=== PATIENT | female | born 1980 | race Caucasian/White ===

== ENCOUNTER 2018-09-21 16:56 | Emergency (ER) | payer OTHER ==
[~2018-09-21] VITALS: Ht 162.6 cm; Wt 59.1 kg
[2018-09-21] MEDS ORDERED: VENTAER INH (17:06)
[2018-09-21] MEDS ORDERED: GABA600T4 PO (17:06)
[2018-09-21] MEDS ORDERED: HYDR-3713 PO (17:06)
[2018-09-21] MEDS ORDERED: PROP40TA62 PO (17:06)
[2018-09-21] MEDS ORDERED: ACETAMINOPHEN TAB 650MG DOSE (2X325MG) PO ONE (17:45)
--- NOTE | 2018-09-21 17:54 | REP ---
REASON: Pain in the neck after trauma. COMPARISON: None. Vertebral body height and alignment is within normal limits. The disc spaces are symmetric and well maintained. The facet joints are well aligned bilaterally. There is no evidence of a fracture. There is no evidence of abnormal paraspinal soft-tissue swelling. IMPRESSION:CT findings are within normal limits. Electronically Signed by Stanley Gomez DO 09/21/2018 06:01 P
--- NOTE | 2018-09-21 17:55 | REP ---
REASON: Trauma. PRIORS: None. TECHNIQUE: 4.5 mm contiguous transaxial sections were obtained from the skull base to the cerebral convexities with thin cuts through the posterior fossa without the administration of intravenous contrast. FINDINGS: The ventricles and sulci are consistent with the patient's age. There are no extra-axial fluid collections. There is no mass effect. The deep cerebral white matter is consistent with the patient's age. The orbital and petrous structures, cerebellopontine angles, and posterior fossa are unremarkable. The sella turcica, cavernous, and paracavernous structures are essentially unremarkable. The visualized portions of the paranasal sinuses and mastoid air cells are clear. Images of the skull base show no gross abnormality. IMPRESSION: Essentially unremarkable CT examination of the brain. Electronically Signed by Stanley Gomez DO 09/21/2018 06:01 P
[2018-09-21 18:30] VITALS: BP 144/86
== END 2018-09-21 18:37 | disposition home or self-care (01) ==
LOC: M ED 16:56 → EDBD 16:56 → M ED 18:37
DX: S13.4XXA Sprain of ligaments of cervical spine, initial encounter (principal); S00.03XA Contusion of scalp, initial encounter; R51 Headache; W00.9XXA Unspecified fall due to ice and snow, initial encounter; Y92.099 Unspecified place in other non-institutional residence as the place of occurrence of the external cause; Y93.9 Activity, unspecified; Y99.9 Unspecified external cause status; M54.40 Lumbago with sciatica, unspecified side; Z72.0 Tobacco use; Z79.899 Other long term (current) drug therapy; Z88.8 Allergy status to other drugs, medicaments and biological substances

== ENCOUNTER 2018-10-06 12:36 | Emergency (ER) | payer OTHER ==
[~2018-10-06] VITALS: Ht 162.6 cm; Wt 59.1 kg
[~2018-10-06 12:36] MED LIST: GABA600T4 PO; HYDR-3713 PO; PROP40TA62 PO; VENTAER INH
[2018-10-06] MEDS ORDERED: ONDANSETRON 4MG/2ML VIAL (J2405) IV ONE ×2 (13:30→17:00)
[2018-10-06] MEDS ORDERED: MORPHINE 4 MG/ML 1ML VIAL/SYRINGE (J2270) IV ONE ×2 (13:30→17:00)
[2018-10-06 13:31] LABS: BASO % 0.2 % (0.0-1.0); EOS # 0.2 10^3/uL (0.0-0.50); EOS % 2.4 % (0.0-3.0); HEMATOCRIT 38.6 % (36.0-47.0); HEMOGLOBIN 13.3 g/dl (12.0-15.5); LYMPH # 1.9 10^3/uL (1.5-4.5); LYMPH % 30.7 % (24.0-44.0); MEAN CORPUSCULAR HGB CONC 34.5 g/dl (32.0-36.5); MEAN CORPUSCULAR VOLUME 92.8 fl (80.0-96.0); MONO # 0.6 10^3/uL (0.0-0.8); MONO % 9.4 % (0.0-5.0); NEUTROPHILS # 3.5 10^3/uL (1.8-7.7); PLATELET COUNT, AUTOMATED 296 10^3/uL (150-450); RED BLOOD COUNT 4.16 10^6/uL (4.00-5.40); WHITE BLOOD COUNT 6.2 10^3/uL (4.0-10.0)
[2018-10-06 14:51] LABS: ALBUMIN 3.8 GM/DL (3.2-5.2); ALT/SGPT 18 U/L (12-78); BILIRUBIN,DIRECT 0.1 MG/DL (0.0-0.2); BILIRUBIN,TOTAL 0.4 MG/DL (0.2-1.0); BLOOD UREA NITROGEN 10 MG/DL (7-18); CALCIUM LEVEL 8.6 MG/DL (8.5-10.1); CARBON DIOXIDE LEVEL 24 MEQ/L (21-32); CHLORIDE LEVEL 109 MEQ/L (98-107); CREATININE FOR GFR 0.84 MG/DL (0.55-1.30); GLOMERULAR FILTRATION RATE > 60.0 (>60); GLUCOSE, FASTING 89 MG/DL (70-100); LIPASE 68 U/L (73-393); POTASSIUM SERUM 4.3 MEQ/L (3.5-5.1); SODIUM LEVEL 138 MEQ/L (136-145); TOTAL PROTEIN 7.2 GM/DL (6.4-8.2)
[2018-10-06] MEDS ORDERED: KETOROLAC 30 MG/ML VIAL (J1885) IV ONE (15:00)
[2018-10-06] MEDS ORDERED: ISOVUE-370 76% 100ML VIAL (Q9967) As Ordered ONE (15:12)
--- NOTE | 2018-10-06 16:34 | REP ---
CT abdomen and pelvis with IV but without oral contrast: History: Left lower quadrant pain. Diarrhea. No comparison study. CT contrast dose: 100 mL of intravenous Isovue [address] findings: Preliminary digital educational technician radiograph shows an unremarkable bowel gas pattern. The lung bases are clear on axial CT images. There is no evidence of pleural effusion or upper abdominal ascites. The liver and spleen are normal in size and homogeneous in texture. There is mild diffuse fatty infiltration of the liver. Spleen is normal in size and homogeneous in texture. No adrenal lesion is seen. No pancreatic abnormality is observed. The gallbladder is homogeneous in density, normal in size. The kidneys enhance symmetrically. No hydronephrosis, mass or calculus is seen. Normal caliber aorta is seen. A retroaortic left renal vein is noted in addition to a normally positioned smaller left renal vein. No retroperitoneal mass or adenopathy is seen. Small and large bowel loops are unremarkable in the abdomen and pelvis. There is heterogeneous myometrial enhancement in the uterus. Question early fibroid change. The uterus is not enlarged. No adnexal abnormality is seen. No free fluid noted. A normal appendix is seen in the right lower quadrant. Impression: Heterogeneous enhancement in the uterine myometrium, question fibroid change. Mild diffuse fatty infiltration of the liver. Otherwise negative CT study abdomen and pelvis. Normal appendix seen. Electronically Signed by Sergio Murrell MD 10/06/2018 08:02 P
[2018-10-06] MEDS ORDERED: ONDA4TAB6 PO (17:57)
[2018-10-06] MEDS ORDERED: DICY10CA13 PO (17:57)
--- NOTE | 2018-10-06 18:24 | REP ---
PELVIC ENDOVAGINAL PROBE ULTRASOUND: 10/06/2018. Clinical history: Left-sided pelvic pain. Heterogeneous enhancement in the uterus on CT with contrast today. No gross adnexal mass. Findings: No prior study. Transabdominal and endovaginal probes were provided with this examination. The bladder measured 5.5 x 3.7 x 3.3 cm, only partially filled. Uterus is anteverted and measures 6 x 3.2 x 4.1 cm. In the submucosal region of the body and fundus of the uterus is an 8 x 7 x 7 mm submucosal fibroid. Uterus is heterogeneous in echotexture. Endometrium is difficult to identify. I favor the fibroid is submucosal compared to endometrium. There is no pelvic free fluid. The ovaries are well seen, the right 2.4 x 1.6 x 1.7 cm. The left 2 x 1.7 x 1.2 cm. Neither shows cyst or solid mass. Doppler tracing shows resistive index 0.56 on that left side and 0.56 on the right, both normal. No torsion. No fluid adjacent to the ovaries. There is trace fluid in the cul-de-sac. Impression: 1. Anteverted uterus not enlarged but there is an 8 x 7 x 7 mm presumed submucosal fibroid posteriorly in the fundus near the body of the uterus. Uterus is heterogeneous in its echotexture as it was on enhancement. Endometrial stripe difficult to evaluate. Appears to measure about 3.4 mm without fluid in the endometrial cavity or endocervical canal. 2. Both ovaries show normal Doppler tracing and no discrete mass. No torsion. Trace free fluid. Electronically Signed by Gen Montoya MD 10/07/2018 01:13 P
[2018-10-06 18:31] VITALS: BP 124/80
--- NOTE | 2018-10-08 07:51 | ED PDOC ---
Post-Departure Follow-Up [facility] faxed formal report of ct abd/p for fu Sudhir Massey MD Oct 08, 2018 07:51
== END 2018-10-06 18:33 | disposition home or self-care (01) ==
LOC: M ED 12:36
DX: R10.84 Generalized abdominal pain (principal); R11.2 Nausea with vomiting, unspecified; R19.7 Diarrhea, unspecified; I10 Essential (primary) hypertension; J45.909 Unspecified asthma, uncomplicated; E05.00 Thyrotoxicosis with diffuse goiter without thyrotoxic crisis or storm; Z87.442 Personal history of urinary calculi; Z79.899 Other long term (current) drug therapy; Z88.8 Allergy status to other drugs, medicaments and biological substances; F17.210 Nicotine dependence, cigarettes, uncomplicated
CPT/HCPCS: 74177; 76830; 76856; 80048; 80076; 81001; 83690; 85025; 87086; 93976; 96374; 96375; 96376; 99284; J1885; J2270; J2405; Q9967

== ENCOUNTER 2018-10-19 12:14 | Emergency (ER) | payer OTHER ==
[~2018-10-19] VITALS: Ht 162.6 cm; Wt 59.1 kg
[~2018-10-19 12:14] MED LIST changes: +DICY10CA13 PO; +ONDA4TAB6 PO
[2018-10-19 12:42] LABS: BASO % 0.5 % (0.0-1.0); EOS # 0.1 10^3/uL (0.0-0.50); EOS % 1.8 % (0.0-3.0); HEMATOCRIT 37.8 % (36.0-47.0); HEMOGLOBIN 13.3 g/dl (12.0-15.5); LYMPH # 2.2 10^3/uL (1.5-4.5); LYMPH % 35.1 % (24.0-44.0); MEAN CORPUSCULAR HEMOGLOBIN 32.2 pg (27.0-33.0); MEAN CORPUSCULAR HGB CONC 35.2 g/dl (32.0-36.5); MEAN CORPUSCULAR VOLUME 91.5 fl (80.0-96.0); MONO # 0.7 10^3/uL (0.0-0.8); MONO % 11.8 % (0.0-5.0); NEUTROPHILS # 3.1 10^3/uL (1.8-7.7); NEUTROPHILS % 50.6 % (36.0-66.0); PLATELET COUNT, AUTOMATED 286 10^3/uL (150-450); RED BLOOD COUNT 4.13 10^6/uL (4.00-5.40); WHITE BLOOD COUNT 6.2 10^3/uL (4.0-10.0)
[2018-10-19] MEDS ORDERED: HYDROMORPHONE HCL 0.5 MG/ 0.5 ML SYRINGE (J1170 PER 1) IV ONE (12:45)
[2018-10-19] MEDS ORDERED: GI COCKTAIL 50ML BTL(HYOSCYAMINE/MAALOX/LIDOCAINE VISCOUS)(1:3:1) PO ONE (12:45)
[2018-10-19 12:54] LABS: PROTHROMBIN TIME 13.3 SECONDS (12.1-14.4)
[2018-10-19 12:55] LABS: PARTIAL THROMBOPLASTIN TIME 33.1 SECONDS (25.4-37.6)
[2018-10-19 13:10] LABS: ALBUMIN 3.9 GM/DL (3.2-5.2); ALT/SGPT 16 U/L (12-78); BILIRUBIN,DIRECT 0.1 MG/DL (0.0-0.2); BILIRUBIN,TOTAL 0.5 MG/DL (0.2-1.0); BLOOD UREA NITROGEN 8 MG/DL (7-18); CALCIUM LEVEL 8.8 MG/DL (8.5-10.1); CARBON DIOXIDE LEVEL 24 MEQ/L (21-32); CHLORIDE LEVEL 107 MEQ/L (98-107); CK-MB VALUE MASS < 1.0 NG/ML (<3.6); CPK CREATINE PHOSPHOKINASE 81 U/L (26-192); CREATININE FOR GFR 0.88 MG/DL (0.55-1.30); GLOMERULAR FILTRATION RATE > 60.0 (>60); GLUCOSE, FASTING 106 MG/DL (70-100); HCG, SERUM QUANTITATIVE < 1.0 MIU/ML; LIPASE 103 U/L (73-393); MB/CK RELATIVE INDEX 1.23 (< OR =4); POTASSIUM SERUM 4.1 MEQ/L (3.5-5.1); SODIUM LEVEL 138 MEQ/L (136-145); TOTAL PROTEIN 7.7 GM/DL (6.4-8.2); TROPONIN I < 0.02 NG/ML (< 0.10)
[2018-10-19] MEDS: HYDROMORPHONE HCL 0.5 MG/ 0.5 ML SYRINGE (J1170 PER 1) IV PRN ×2 (13:27→14:54)
--- NOTE | 2018-10-19 13:49 | REP ---
Clinical: Acute chest pain . Comparison: None . Findings: The mediastinum and cardiac silhouette are stable and within normal limits for portable technique. The lung rome are clear without acute consolidation, effusion, or pneumothorax. Skeletal structures are intact. Impression: No acute cardiopulmonary process appreciated. Electronically Signed by Jc Uriarte MD 10/19/2018 01:40 P
[2018-10-19] MEDS ORDERED: ISOVUE-370 76% 100ML VIAL (Q9967) As Ordered ONE (15:09)
--- NOTE | 2018-10-19 15:50 | REP ---
CT pulmonary angiogram: With IV contrast. History: Chest pain. Left-sided. Comparison studies: No comparison study. Contrast dose: 75 ML of Isovue [address] technique: Helical scanning is acquired and overlapping 1.5 mm and contiguous 3 mm axial images are reformatted. In addition, maximum intensity projection and multiplanar re-formation images are generated in sagittal and coronal imaging projections. CT pulmonary angiographic findings: There is good opacification of the pulmonary arterial tree. Axial and maximal intensity projection and MPR images show no evidence of vessel cutoff or filling defect to suggest a pulmonary embolus. Thoracic aorta shows no evidence of aneurysm or dissection. There is no evidence of pleural or pericardial effusion. Normal adrenal glands are seen. Visualized upper abdominal structures are unremarkable. A small quantity of thymic tissue is seen in the anterior mediastinum. There are is asymmetric enlargement of the left inferior thyroid lobe question left thyroid nodule. Consider thyroid sonography. There is mild multifocal pleural thickening bilaterally consistent with early pleural plaquing. No pulmonary nodule is appreciated. No mass or infiltrate is seen. Incidental note is made of what appears to be extrinsic compression of the celiac axis just beyond its origin from the ordering aorta consistent with median arcuate ligament compression related to the diaphragmatic hiatus. This may be asymptomatic or associated with chronic abdominal pain and/or weight loss. Impression: No CT evidence of pulmonary embolus. No active cardiopulmonary disease. Incidental finding of compression of the celiac axis consistent with median arcuate ligament compression. This may be asymptomatic or associated with chronic abdominal pain and/or weight loss. Consider thyroid sonography. Asymmetric enlargement of the suspected in the lower pole on the left thyroid lobe. Unreviewed
[2018-10-19] MEDS ORDERED: hydrOXYzine 25 MG TAB PO STA (16:43)
[2018-10-19] MEDS ORDERED: HYDR-3363 PO (17:02)
[2018-10-19 17:42] VITALS: BP 124/80
--- NOTE | 2018-10-20 07:19 | ECGEPIP ---
Stationary ECG Study [facility] - ED Test Date: 2018-10-19 Pat Name: BARBY MONTESINOS Department: Room: - Gender: F Profile Saw Operator: JACKI : 1980 Requested By: ALB[place]IA Maxwell Order Number: [id number] Reading MD: Negrita Rios Measurements Intervals [place] Rate: 65 P: 74 MN: 129 QRS: 69 QRSD: 73 T: 34 QT: 386 QTc: 401 Interpretive Statements SINUS RHYTHM NO PRIOR FOR COMPARISON Electronically Signed On 10-20-2018 7:19:29 EST by Negrita Rios
== END 2018-10-19 17:56 | disposition home or self-care (01) ==
LOC: M ED 12:14
DX: F41.9 Anxiety disorder, unspecified (principal); F43.20 Adjustment disorder, unspecified; E07.9 Disorder of thyroid, unspecified; I77.4 Celiac artery compression syndrome; I10 Essential (primary) hypertension; Z79.899 Other long term (current) drug therapy; Z88.8 Allergy status to other drugs, medicaments and biological substances; F17.210 Nicotine dependence, cigarettes, uncomplicated
CPT/HCPCS: 36415; 71045; 71275; 80048; 80076; 82550; 82553; 83690; 84702; 85025; 85610; 85730; 93005; 93041; 94760; 96374; 96375; 96376; 99285; J1170; Q9967

== ENCOUNTER → 2018-10-31 | Outpatient (REF) | payer OTHER ==
[~2018-10-31] MED LIST changes: +HYDR-3363 PO
[2018-11-01 11:53] LABS: APPEARANCE, URINE CLEAR (CLEAR); BACTERIA, URINE AUTO NEGATIVE (NEGATIVE); BILIRUBIN, URINE AUTO NEGATIVE (NEGATIVE); BLOOD, URINE BLOOD NEGATIVE (NEGATIVE); COLOR, URINE YELLOW (YELLOW); GLUCOSE, URINE (UA) AUTO NEGATIVE (NEGATIVE); KETONE, URINE AUTO NEGATIVE (NEGATIVE); LEUKOCYTE ESTERASE, URINE AUTO NEGATIVE (NEGATIVE); MUCUS, URINE SMALL (NEGATIVE); NITRITE, URINE AUTO NEGATIVE (NEGATIVE); PROTEIN, URINE AUTO NEGATIVE (NEGATIVE); RBC, URINE AUTO 1 /HPF (0-3); SQUAMOUS EPITHELIAL CELL UR AU 2 /HPF (0-6); UROBILINOGEN, URINE AUTO 0.2 mg/dL (0.0-2.0); WBC, URINE AUTO 2 /HPF (0-3)
== END ==
LOC: M SFHCPLAZ 11:22
PROVIDERS: ATTEND Physician Assistant
DX: R35.0 Frequency of micturition (principal)

== ENCOUNTER → 2018-11-02 | Outpatient (CLI) | payer OTHER ==
[2018-11-02 09:03] LABS: HEMATOCRIT 42.7 % (36.0-47.0); HEMOGLOBIN 14.5 g/dl (12.0-15.5); MEAN CORPUSCULAR HEMOGLOBIN 31.8 pg (27.0-33.0); MEAN CORPUSCULAR VOLUME 93.6 fl (80.0-96.0); PLATELET COUNT, AUTOMATED 323 10^3/uL (150-450); RED BLOOD COUNT 4.56 10^6/uL (4.00-5.40); WHITE BLOOD COUNT 4.2 10^3/uL (4.0-10.0)
[2018-11-02 09:36] LABS: ALBUMIN 4.3 GM/DL (3.2-5.2); ALT/SGPT 18 U/L (12-78); BILIRUBIN,TOTAL 0.5 MG/DL (0.2-1.0); BLOOD UREA NITROGEN 10 MG/DL (7-18); CALCIUM LEVEL 9.6 MG/DL (8.5-10.1); CARBON DIOXIDE LEVEL 27 MEQ/L (21-32); CHLORIDE LEVEL 107 MEQ/L (98-107); CHOLESTEROL LEVEL 171 MG/DL (<200); CHOLESTEROL RISK RATIO 3.489 (<5); CREATININE FOR GFR 0.88 MG/DL (0.55-1.30); FREE T4 1.15 NG/DL (0.76-1.46); GLOMERULAR FILTRATION RATE > 60.0 (>60); GLUCOSE, FASTING 99 MG/DL (70-100); HDL CHOLESTEROL 49 MG/DL (>40); LDL CHOLESTEROL 103 MG/DL (<100); NON-HDL-C 122 MG/DL; POTASSIUM SERUM 4.2 MEQ/L (3.5-5.1); SODIUM LEVEL 141 MEQ/L (136-145); THYROID STIMULATING HORMONE 0.249 uIU/ML (0.358-3.740); TOTAL PROTEIN 7.8 GM/DL (6.4-8.2); TRIGLYCERIDES LEVEL 96 MG/DL (<150)
[2018-11-02 11:17] LABS: TOTAL 25(OH) VITAMIN D 25.8 NG/ML (30.0-100.0)
== END ==
LOC: M LAB 08:21
PROVIDERS: ATTEND Physician Assistant
DX: E05.00 Thyrotoxicosis with diffuse goiter without thyrotoxic crisis or storm (principal)

== ENCOUNTER → 2018-11-14 | Outpatient (REF) | payer OTHER ==
[~2018-11-14] MED LIST changes: +KETO10TAB PO; +OCUF0.25 OS
[2018-11-14 12:36] LABS: APPEARANCE, URINE CLEAR (CLEAR); BACTERIA, URINE AUTO 1+ (NEGATIVE); BILIRUBIN, URINE AUTO NEGATIVE (NEGATIVE); BLOOD, URINE BLOOD 3+ (NEGATIVE); COLOR, URINE STRAW (YELLOW); GLUCOSE, URINE (UA) AUTO NEGATIVE (NEGATIVE); KETONE, URINE AUTO NEGATIVE (NEGATIVE); LEUKOCYTE ESTERASE, URINE AUTO 3+ (NEGATIVE); NITRITE, URINE AUTO NEGATIVE (NEGATIVE); PROTEIN, URINE AUTO NEGATIVE (NEGATIVE); RBC, URINE AUTO 0 /HPF (0-3); SPECIFIC GRAVITY URINE AUTO 1.001 (1.002-1.035); SQUAMOUS EPITHELIAL CELL UR AU 2 /HPF (0-6); UROBILINOGEN, URINE AUTO 0.2 mg/dL (0.0-2.0); WBC, URINE AUTO 20 /HPF (0-3)
== END ==
LOC: M SFHCPLAZ 11:40
PROVIDERS: ATTEND Physician Assistant
DX: R52 Pain, unspecified (principal)

== ENCOUNTER → 2018-11-14 | Outpatient (CLI) | payer OTHER ==
--- NOTE | 2018-11-14 15:55 | REP ---
Clinical: Hematuria. Technique: Axial noncontrast images from the lung bases to the pubic symphysis with coronal and sagittal re-formations. Findings: Lung bases are clear. Liver, spleen, pancreas, gallbladder, bilateral adrenal glands and kidneys appear relatively normal for noncontrast evaluation. No perinephric stranding or hydroureteronephrosis. No intrarenal or obstructing ureteral calculi identified. Evaluation of the enteric system is without obstruction or acute inflammatory process. Sigmoid diverticula noted without acute diverticulitis. Pelvis demonstrates normal bladder and age-appropriate uterus/adnexa. No ascites. No free air. No obvious adenopathy. Abdominal aorta without aneurysm. Musculoskeletal structures are intact. Impression: No acute abdominopelvic pathology appreciated. Electronically Signed by Jc Uriarte MD 11/14/2018 03:47 P
== END ==
LOC: M RAD 15:26
PROVIDERS: ATTEND Physician Assistant
DX: R31.9 Hematuria, unspecified (principal)

== ENCOUNTER 2018-11-15 18:30 | Emergency (ER) | payer OTHER ==
[~2018-11-15] VITALS: Ht 162.6 cm; Wt 59.1 kg
[~2018-11-15 18:30] MED LIST changes: -KETO10TAB PO; -OCUF0.25 OS
[2018-11-15] MEDS ORDERED: FLUORESCEIN OPHTH 1 MG STRIP As Ordered ONE (18:45)
[2018-11-15] MEDS ORDERED: TETRACAINE 0.5% OPHTH SOLN 4ML OS ONE (19:00)
[2018-11-15] MEDS ORDERED: FLUORESCEIN OPHTH 1 MG STRIP OS ONE (19:00)
[2018-11-15] MEDS ORDERED: CIPROFLOXACIN 0.3% OPHTH SOLN 2.5ML OS ONE (19:30)
[2018-11-15] MEDS ORDERED: KETO10TAB PO (19:41)
[2018-11-15] MEDS ORDERED: OCUF0.25 OS (19:41)
[2018-11-15] MEDS ORDERED: NORCO 5/325MG TABLET (BULK FOR ED) PO ONE (20:00)
[2018-11-15 20:03] VITALS: BP 137/86
== END 2018-11-15 20:04 | disposition home or self-care (01) ==
LOC: M ED 18:30
DX: S05.02XA Injury of conjunctiva and corneal abrasion without foreign body, left eye, initial encounter (principal); X58.XXXA Exposure to other specified factors, initial encounter; Y92.89 Other specified places as the place of occurrence of the external cause; I10 Essential (primary) hypertension; J45.909 Unspecified asthma, uncomplicated; E05.00 Thyrotoxicosis with diffuse goiter without thyrotoxic crisis or storm; Z79.899 Other long term (current) drug therapy; Z88.8 Allergy status to other drugs, medicaments and biological substances

== ENCOUNTER → 2018-11-18 | Outpatient (CLI) | payer OTHER ==
[~2018-11-18] MED LIST changes: +KETO10TAB PO; +OCUF0.25 OS
--- NOTE | 2018-11-20 09:47 | REP ---
MRI lumbar spine without contrast: History: Lumbar radiculopathy and low back pain. Left-sided L5 changes. Comparison study: June 28, 2016. Technique: Sagittal and axial T1 and T2-weighted scans are acquired in the usual fashion with and without fat saturation. Sequences include spin echo, turbo spin-echo, and STIR imaging sequences. MRI findings: There is a 1.8 cm hemangioma again noted in the L4 vertebral body unchanged. Cortical and medullary bone signal intensity are normal. There is straightening. Alignment is otherwise normal. Conus medullaris is normal in position and appearance at the T12-L1. No extra vertebral abnormality is observed. Axial and sagittal images at L1-2 and L2-3 show no abnormality. At L3-4, there is disc space narrowing and decreased disc space signal intensity. There is a broad-based L3-4 disc bulge indenting the ventral margin of the thecal sac. There is no evidence of central canal stenosis or neural foraminal impingement however. At L4-5, there is degenerative disc narrowing and central broad-based disc bulging again noted unchanged. Minimal ligamentum flavum and facet hypertrophy is present at the L4-5. This is unchanged. At L5-S1, there is mild facet hypertrophy bilaterally. No change from comparison study. Impression: Degenerative disc disease with the diffuse disc bulging and mild thecal sac compression again noted at L3-4 L4-5 unchanged. L4 hemangioma is again noted unchanged. No neural foraminal impingement seen. Electronically Signed by Sergio Murrell MD 11/20/2018 12:45 P
== END ==
LOC: M RAD 12:56
DX: M51.16 Intervertebral disc disorders with radiculopathy, lumbar region (principal)

== ENCOUNTER → 2018-12-21 | Outpatient (CLI) | payer OTHER ==
--- NOTE | 2018-12-21 10:46 | REP ---
Mesenteric Doppler ultrasound: History: Right upper quadrant pain. Ultrasound examination requested with and without inspiration. Findings: Peak systolic flow velocity in the abdominal aorta above the level of the celiac axis is measured at 99.8 cm/sec. Peak systolic flow velocity in the superior mesenteric artery origin is measured at 185 cm/sec, EDV 49 cm/sec. Monophasic flow is seen in the SMA. Normal flow would be triphasic in a fasting patient in the SMA. The celiac axis demonstrates elevated peak systolic flow velocities which vary with respiration. At expiration, peak systolic flow velocity in the celiac axis is measured at 226 cm/sec which is elevated. Peak systolic flow velocity is elevated even further in the celiac axis with inspiration where peak systolic flow velocity is measured at 356 cm/sec, EDV 115 cm/sec. In addition, there is a observable deflection in the celiac axis, decreasing the deflection angle with inspiration and increasing compression of the celiac artery on sagittal real time imaging. Impression: There are morphologic and Doppler velocity criteria consistent with celiac artery compression/median arcuate ligament syndrome. Electronically Signed by Sergio Murrell MD 12/21/2018 10:37 A
== END ==
LOC: M RAD 07:47
PROVIDERS: ATTEND Surgery Vascular Surgery
DX: R10.11 Right upper quadrant pain (principal); I77.89 Other specified disorders of arteries and arterioles

== ENCOUNTER → 2019-01-15 | Outpatient (CLI) | payer OTHER ==
[2019-01-15 16:24] LABS: BASO % 0.5 % (0.0-1.0); EOS # 0.1 10^3/uL (0.0-0.50); EOS % 1.3 % (0.0-3.0); HEMATOCRIT 40.2 % (36.0-47.0); HEMOGLOBIN 13.5 g/dl (12.0-15.5); LYMPH # 2.4 10^3/uL (1.5-4.5); MEAN CORPUSCULAR HGB CONC 33.6 g/dl (32.0-36.5); MEAN CORPUSCULAR VOLUME 92.2 fl (80.0-96.0); MONO # 0.5 10^3/uL (0.0-0.8); MONO % 8.6 % (0.0-5.0); NEUTROPHILS # 3.2 10^3/uL (1.8-7.7); NEUTROPHILS % 51.4 % (36.0-66.0); PLATELET COUNT, AUTOMATED 282 10^3/uL (150-450); RED BLOOD COUNT 4.36 10^6/uL (4.00-5.40); WHITE BLOOD COUNT 6.3 10^3/uL (4.0-10.0)
[2019-01-15 16:48] LABS: BLOOD UREA NITROGEN 13 MG/DL (7-18); CALCIUM LEVEL 9.2 MG/DL (8.5-10.1); CARBON DIOXIDE LEVEL 30 MEQ/L (21-32); CHLORIDE LEVEL 99 MEQ/L (98-107); GLOMERULAR FILTRATION RATE > 60.0 (>60); GLUCOSE, FASTING 92 MG/DL (70-100); POTASSIUM SERUM 3.9 MEQ/L (3.5-5.1); SODIUM LEVEL 136 MEQ/L (136-145)
== END ==
LOC: M LAB 15:50
PROVIDERS: ATTEND Surgery Vascular Surgery
DX: I77.4 Celiac artery compression syndrome (principal)

== ENCOUNTER → 2019-02-08 | Outpatient (CLI) | payer OTHER ==
[~2019-02-08] MED LIST changes: +BUPIVACAINE HCL 0.5% 10 ML VIAL As Ordered ONE; +HEPARIN 1,000 UNITS/ML 10ML VIAL (FOR RADIOLOGY& DIALYSIS ONLY) As Ordered ONE; +ISOVUE-300 61% 100ML VIAL (Q9967) As Ordered ONE; +LIDOCAINE 2% MDV 20 ML VIAL As Ordered ONE; +MIDAZOLAM INJ 2 MG/2 ML VIAL (J2250) As Ordered ONE; +PROTAMINE SULF INJ 50 MG/5 ML VIAL (J2720) As Ordered ONE; +diphenhydrAMINE INJ 50MG/ML VIAL (J1200) As Ordered ONE; +fentaNYL 100 MCG/2 ML INJECTION (J3010) As Ordered ONE
--- NOTE | 2019-02-24 12:30 | REPIR ---
DATE OF PROCEDURE: 02/08/2019 ATTENDING SURGEON: Luis Ash MD ASSISTANTS: Nigel Foster and Queta Tatum PREOPERATIVE DIAGNOSES: Median arcuate ligament syndrome, abdominal pain. POSTOPERATIVE DIAGNOSES: Median arcuate ligament syndrome, abdominal pain. PROCEDURE: Aortogram with and without inspiration, Mynx closure of the right common femoral arteriotomy. INDICATION: The patient is a 38-year-old female with abdominal pain who was found to have compression of the celiac artery noted on a CT scan. The patient underwent ultrasound, which also confirmed this, and will undergo angiography to confirm celiac artery compression from the median arcuate ligament. ANESTHESIA: Local with sedation with 1 mg of Versed, 100 mcg of fentanyl, and 10 mL of local. FLUORO TIME: 0.6 minutes. CONTRAST: 15 mL. SEDATION TIME: 09:48 a.m. to 10:18 a.m. for a total of 30 minutes. COMPLICATIONS: None. DRAINS: None. SPECIMENS: None. IMPLANTS: Right common femoral arteriotomy closure with a Mynx closure device. DESCRIPTION OF PROCEDURE: The patient was taken to the angiography suite, placed supine. The right common femoral artery was cannulated. A catheter was placed in the aorta, and expiration and inspiration views of the celiac artery were performed showing median arcuate compression of the celiac artery. The catheters and wires were removed. A Mynx closure device was used to close the arteriotomy in the right common femoral artery with an additional 10 minutes of adjunctive pressure applied for hemostasis. Dressings were then applied. The patient tolerated the procedure well. All instrument, sponge, and needle counts were correct at the end of the case. There were no complications. Dr. Ash was present for and directed the entire case. The patient was transferred to the holding area and subsequent discharged in stable condition.
== END | disposition home or self-care (01) ==
LOC: M IRPRO 08:58
PROVIDERS: ATTEND Surgery Vascular Surgery
DX: I77.4 Celiac artery compression syndrome (principal)
CPT/HCPCS: 36200; 75625; C1769; C1887; C1894; G0269; J1200; J2250; J3010; Q9967

== ENCOUNTER → 2019-03-08 | Outpatient (REF) | payer OTHER ==
[~2019-03-08] MED LIST changes: -BUPIVACAINE HCL 0.5% 10 ML VIAL As Ordered ONE; -HEPARIN 1,000 UNITS/ML 10ML VIAL (FOR RADIOLOGY& DIALYSIS ONLY) As Ordered ONE; -ISOVUE-300 61% 100ML VIAL (Q9967) As Ordered ONE; -LIDOCAINE 2% MDV 20 ML VIAL As Ordered ONE; -MIDAZOLAM INJ 2 MG/2 ML VIAL (J2250) As Ordered ONE; -PROTAMINE SULF INJ 50 MG/5 ML VIAL (J2720) As Ordered ONE; -diphenhydrAMINE INJ 50MG/ML VIAL (J1200) As Ordered ONE; -fentaNYL 100 MCG/2 ML INJECTION (J3010) As Ordered ONE
[2019-03-08 13:17] LABS: BASO % 0.4 % (0.0-1.0); EOS # 0.2 10^3/uL (0.0-0.50); EOS % 2.7 % (0.0-3.0); HEMOGLOBIN 13.5 g/dl (12.0-15.5); LYMPH # 1.9 10^3/uL (1.5-4.5); LYMPH % 26.4 % (24.0-44.0); MEAN CORPUSCULAR HGB CONC 32.9 g/dl (32.0-36.5); MONO # 0.7 10^3/uL (0.0-0.8); NEUTROPHILS # 4.2 10^3/uL (1.8-7.7); NEUTROPHILS % 60.2 % (36.0-66.0); PLATELET COUNT, AUTOMATED 293 10^3/uL (150-450); RED BLOOD COUNT 4.36 10^6/uL (4.00-5.40)
[2019-03-08 13:22] LABS: FREE T3 3.4 PG/ML (2.2-4.0)
[2019-03-08 13:31] LABS: ALBUMIN 3.9 GM/DL (3.2-5.2); ALT/SGPT 21 U/L (12-78); BILIRUBIN,TOTAL 0.3 MG/DL (0.2-1.0); BLOOD UREA NITROGEN 7 MG/DL (7-18); CALCIUM LEVEL 9.5 MG/DL (8.5-10.1); CARBON DIOXIDE LEVEL 31 MEQ/L (21-32); CHLORIDE LEVEL 105 MEQ/L (98-107); FREE T4 0.93 NG/DL (0.76-1.46); GLOMERULAR FILTRATION RATE > 60.0 (>60); GLUCOSE, FASTING 103 MG/DL (70-100); POTASSIUM SERUM 4.3 MEQ/L (3.5-5.1); SODIUM LEVEL 139 MEQ/L (136-145); TOTAL 25(OH) VITAMIN D 16.6 NG/ML (30.0-100.0); TOTAL PROTEIN 7.7 GM/DL (6.4-8.2)
[2019-03-09 09:40] LABS: THYROID PEROXIDASE ANTIBODY > 1300.0 U/ML (<60.0)
== END ==
LOC: M SFHCPLAZ 11:12
PROVIDERS: ATTEND Nurse Practitioner Family
DX: K04.7 Periapical abscess without sinus (principal); E55.9 Vitamin D deficiency, unspecified; E05.00 Thyrotoxicosis with diffuse goiter without thyrotoxic crisis or storm

== ENCOUNTER 2019-04-03 09:25 | Inpatient (IN) | payer OTHER ==
[~2019-04-03] VITALS: Ht 162.6 cm; Wt 55.7 kg
[2019-04-03 10:22] LABS: HEMATOCRIT 41.7 % (36.0-47.0); HEMOGLOBIN 13.8 g/dl (12.0-15.5); MEAN CORPUSCULAR HEMOGLOBIN 32.2 pg (27.0-33.0); MEAN CORPUSCULAR HGB CONC 33.1 g/dl (32.0-36.5); MEAN CORPUSCULAR VOLUME 97.2 fl (80.0-96.0); PLATELET COUNT, AUTOMATED 261 10^3/uL (150-450); RED BLOOD COUNT 4.29 10^6/uL (4.00-5.40); WHITE BLOOD COUNT 4.4 10^3/uL (4.0-10.0)
[2019-04-03] MEDS ORDERED: DICY10CA13 PO (10:26)
[2019-04-03 10:53] LABS: AMPHETAMINES LEVEL URINE NEGATIVE (NEGATIVE); BARBITURATES URINE NEGATIVE (NEGATIVE); BENZODIAZEPINES URINE NEGATIVE (NEGATIVE); CANNABINOIDS URINE POSITIVE (NEGATIVE); COCAINE METABOLITE URINE NEGATIVE (NEGATIVE); HCG, SERUM QUALITATIVE NEGATIVE (NEGATIVE); METHADONE URINE NEGATIVE (NEGATIVE); OPIATES URINE POSITIVE (NEGATIVE); PHENCYCLIDINE URINE NEGATIVE (NEGATIVE)
[2019-04-03 11:16] LABS: ACETAMINOPHEN LEVEL < 2.0 UG/ML (10.0-30.0); ALT/SGPT 13 U/L (12-78); BILIRUBIN,DIRECT < 0.1 MG/DL (0.0-0.2); BILIRUBIN,TOTAL 0.2 MG/DL (0.2-1.0); BLOOD UREA NITROGEN 9 MG/DL (7-18); CALCIUM LEVEL 8.8 MG/DL (8.5-10.1); CARBON DIOXIDE LEVEL 28 MEQ/L (21-32); CHLORIDE LEVEL 109 MEQ/L (98-107); CREATININE FOR GFR 0.98 MG/DL (0.55-1.30); ETHYL ALCOHOL (ETHANOL) 0.005 % (0.000-0.010); GLOMERULAR FILTRATION RATE > 60.0 (>60); GLUCOSE, FASTING 85 MG/DL (70-100); POTASSIUM SERUM 4.2 MEQ/L (3.5-5.1); SALICYLATE LEVEL 4.2 MG/DL (5.0-30.0); SODIUM LEVEL 141 MEQ/L (136-145); THYROID STIMULATING HORMONE 0.944 uIU/ML (0.358-3.740); TOTAL PROTEIN 7.9 GM/DL (6.4-8.2)
[2019-04-03] MEDS ORDERED: ONDA8TAB8 PO (11:52)
[2019-04-03] MEDS ORDERED: HYDR-643 PO (11:52)
[2019-04-03] MEDS ORDERED: MOM 30ML SUSPENSION UDC PO PRN (13:30)
[2019-04-03] MEDS ORDERED: MAALOX 30 ML SUSP *UDC PO PRN (13:30)
[2019-04-03 14:55] VITALS: BP 166/71
[2019-04-03] MEDS ORDERED: ALBUTEROL 90 MCG/ACT 8GM HFA INHALER INH PRN (15:30)
[2019-04-03] MEDS: GABAPENTIN 300 MG CAP PO SCH ×2 (16:14→20:17)
[2019-04-03] MEDS: PROPRANOLOL 20 MG TAB PO SCH ×2 (16:18→20:18)
[2019-04-03] MEDS: ONDANSETRON 4 MG TAB (S0181) PO PRN (17:44)
[2019-04-03 18:35] VITALS: BP 108/61
[2019-04-03] MEDS: CYCLOBENZAPRINE 5MG TABLET PO SCH (22:00)
[2019-04-03] MEDS: traZODone 50 MG TAB PO PRN (22:04)
--- NOTE | 2019-04-03 22:05 | HPEPDOC ---
General Date of Admission Apr 03, 2019 at 13:17 Date of Service: Apr 03, 2019 Attending Physician: ELKE CORDOBA MD Chief Complaint The patient is a 38-year-old female admitted with a reason for visit of Unspecified Depressive Disorder. History of Present Illness Patient is a 38-year-old female, past medical history significant for depression, anxiety, Graves disease, polysubstance abuse. Patient was admitted on account of suicidal ideation to inpatient psychiatric unit for further evaluation and management. On assessment, she denies chest pain, shortness of breath, she is very tearful, complains of severe low back pain. She denies chills, fever, abdominal pain, nausea, vomiting. Home Medications Scheduled Gabapentin (Gabapentin) 600 Mg Tab, 600 MG PO TID, (Reported) Hydroxyzine HCl (Hydroxyzine HCl) 10 Mg Tablet, 10 MG PO QHS, (Reported) Propranolol HCl (Propranolol HCl) 40 Mg Tab, 40 MG PO TID, (Reported) Scheduled PRN Albuterol Sulfate (Ventolin Hfa) 108 Mcg/Act Aer, 2 PUFF INH Q4H PRN for SOB/WHEEZING, (Reported) Ondansetron (Ondansetron Odt) 8 Mg Tab.rapdis, 8 MG PO Q8H PRN for NAUSEA, (Reported) Allergies Coded Allergies: adhesive tape (Verified Allergy, Unknown, HIVES, 04/03/19) fluoxetine (Verified Adverse Reaction, Severe, homicidal thoughts, 04/03/19) paroxetine (Verified Adverse Reaction, Severe, homicidal thoughts, 04/03/19) sertraline (Verified Adverse Reaction, Severe, homicidal thoughts, ) prednisone (Verified Adverse Reaction, Unknown, AGITATION, 04/03/19) Past Medical History Medical History Depression Polysubstance abuse Nicotine dependence Graves' disease Surgical History Left breast mass removal Bunion removal Tonsillectomy Social History Smokes one pack per day, denies alcohol use, admits to polysubstance abuse with THC, opiates, pearl, cocaine A-FIB/CHADSVASC A-FIB History Current/History of A-Fib/PAF?: No Current PO Anticoag Therapy: No Review of Systems Other systems A 10 point pertinent review of systems was completed, negative except as stated in the history of presenting illness. Physical Examination Other physical findings GENERAL: distressed SKIN : Warm, dry intact HEENT: Atraumatic, normocephalic, PERRL, moist mucous membrane CARDIOVASCULAR: Regular rate and rhythm, S1S2, no JVD, no edema, distal pulses + and palpable RESP: CTAB, no accessory muscle use noted ABDOMEN: BS+ non distended non tender MS: no joint deformities, pain with palpation of legs NEURO: Alert and oriented x 3, CN2-12 grossly intact PSYCH: tearful Vital Signs Vital Signs Date Time Temp Pulse Resp B/P (MAP) Pulse Ox O2 Delivery O2 Flow Rate FiO2 04/03/19 20:18 77 118/81 04/03/19 18:35 99.1 16 04/03/19 14:55 97 04/03/19 13:47 Room Air Laboratory Data Labs 24H Laboratory Tests 2 04/03/19 10:03: Nucleated Red Blood Cells % (auto) 0.0, Anion Gap 4L, Glomerular Filtration Rate > 60.0, Calcium Level 8.8, Aspartate Amino Transf (AST/SGOT) 10, Alanine Aminotransferase (ALT/SGPT) 13, Alkaline Phosphatase 100, Total Bilirubin 0.2, Direct Bilirubin < 0.1, Total Protein 7.9, Albumin 4.0, Albumin/Globulin Ratio 1.03, Thyroid Stimulating Hormone (TSH) 0.944, Human Chorionic Gonadotropin, Qu al NEGATIVE, Salicylates Level 4.2L, Urine Amphetamines Screen NEGATIVE, Urine Benzodiazepines Screen NEGATIVE, Urine Opiates Screen POSITIVEH, Urine Methadone Screen NEGATIVE, Acetaminophen Level < 2.0L, Urine Barbiturates Screen NEGATIVE, Urine Phencyclidine Screen NEGATIVE, Urine Cocaine Metabolite Screen NEGATIVE, Urine Cannabinoids Screen POSITIVEH, Ethyl Alcohol Level 0.005 CBC/BMP Laboratory Tests 04/03/19 10:03 Red Blood Count 4.29, Mean Corpuscular Volume 97.2 H, Mean Corpuscular Hemoglobin 32.2, Mean Corpuscular Hemoglobin Concent 33.1, Red Cell Distribution Width 13.1 Assessment/Plan Low back pain -Lumbar spine x-ray -Ibuprofen as needed with food and muscle relaxer Major depression with Suicidal ideation -Management by primary team Nicotine dependence -Management by primary team Polysubstance abuse -Management by primary team Plan / VTE VTE Prophylaxis Ordered?: No VTE Exclusion Mechanical Proph: Low Risk for VTE RINA CROSSP Apr 03, 2019 22:05
[2019-04-03] MEDS ORDERED: IBUPROFEN 600 MG TAB PO PRN (22:15)
[2019-04-04] MEDS: CYCLOBENZAPRINE 5MG TABLET PO SCH ×3 (06:17→21:22)
[2019-04-04 06:28] VITALS: BP 115/59
--- NOTE | 2019-04-04 06:34 | REP ---
Lumbar spine five views: Comparison is the lumbar spine MRI dated 11/18/2018. Mineralization is normal. Vertebral body heights, interspacing alignment are unremarkable. The There is no spondylolysis or spondylolisthesis. The pedicles and facets are unremarkable. The sacroiliac articulations are unremarkable. The L-4 hemangioma identified by MRI is not visible on these plain films. Impression: Essentially negative plain film study of the lumbar spine. Electronically Signed by Guanaco Kong MD 04/04/2019 06:26 A
[2019-04-04] MEDS: NICOTINE 21MG/24HR 1 EA TRANSDERMAL TD PRN (08:26)
[2019-04-04] MEDS: GABAPENTIN 300 MG CAP PO SCH ×3 (08:27→21:22)
[2019-04-04] MEDS: PROPRANOLOL 20 MG TAB PO SCH ×3 (08:28→21:22)
[2019-04-04] MEDS: ONDANSETRON 4 MG TAB (S0181) PO PRN ×2 (08:39→16:52)
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
[2019-04-04] MEDS: ANALGESIC BALM CRM 120 GM TOP PRN ×2 (13:16→19:34)
[2019-04-04] MEDS: VENLAFAXINE **XR** 37.5 MG CAPSULE PO SCH (17:21)
[2019-04-04 18:32] VITALS: BP 127/80
[2019-04-04] MEDS: traZODone 50 MG TAB PO PRN (21:22)
[2019-04-05] MEDS: CYCLOBENZAPRINE 5MG TABLET PO SCH ×3 (05:59→21:39)
[2019-04-05 06:30] VITALS: BP 99/59
[2019-04-05] MEDS: NICOTINE 21MG/24HR 1 EA TRANSDERMAL TD PRN (08:08)
[2019-04-05] MEDS: GABAPENTIN 300 MG CAP PO SCH ×3 (08:08→21:39)
[2019-04-05] MEDS: VENLAFAXINE **XR** 37.5 MG CAPSULE PO SCH (08:10)
[2019-04-05] MEDS: PROPRANOLOL 20 MG TAB PO SCH ×3 (08:10→22:24)
[2019-04-05] MEDS: ONDANSETRON 4 MG TAB (S0181) PO PRN (12:25)
[2019-04-05] MEDS: ACETAMINOPHEN TAB 650MG DOSE (2X325MG) PO PRN (15:17)
[2019-04-05 18:00] VITALS: BP 110/73
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
[2019-04-05] MEDS: traZODone 50 MG TAB PO PRN (20:39)
[2019-04-06] MEDS: CYCLOBENZAPRINE 5MG TABLET PO SCH (06:24)
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
[2019-04-06 06:46] VITALS: BP 99/51
[2019-04-06] MEDS: VENLAFAXINE **XR** 37.5 MG CAPSULE PO SCH (08:26)
[2019-04-06 08:27] VITALS: BP 101/66
[2019-04-06] MEDS: PROPRANOLOL 20 MG TAB PO SCH (08:27)
[2019-04-06] MEDS: GABAPENTIN 300 MG CAP PO SCH (08:28)
[2019-04-06] MEDS ORDERED: VENL37.598 PO (08:43)
[2019-04-06] MEDS: ACETAMINOPHEN TAB 650MG DOSE (2X325MG) PO PRN (09:35)
== END 2019-04-06 10:10 | disposition home or self-care (01) | DRG 754 ==
LOC: M ED 09:25 → M ED INP 13:17 → M PSY 14:17
PROVIDERS: ADMIT Psychiatry & Neurology Addiction Medicine; ATTEND Psychiatry & Neurology Addiction Medicine
DX: F32.9 Major depressive disorder, single episode, unspecified (principal); F17.210 Nicotine dependence, cigarettes, uncomplicated; M54.5 Low back pain; Z81.1 Family history of alcohol abuse and dependence; Z81.3 Family history of other psychoactive substance abuse and dependence; Z79.899 Other long term (current) drug therapy; Z88.8 Allergy status to other drugs, medicaments and biological substances

== ENCOUNTER → 2019-05-10 | Outpatient (CLI) | payer OTHER ==
[~2019-05-10] MED LIST changes: +HYDR-643 PO; +ONDA8TAB8 PO; +VENL37.598 PO
== END ==
LOC: M OUTALCOH 07:49
PROVIDERS: ATTEND Psychiatry & Neurology Psychiatry
DX: F11.20 Opioid dependence, uncomplicated (principal)

== ENCOUNTER 2019-05-18 09:24 | Outpatient (RCR) | payer OTHER | END 2019-05-19 | LOC: M OUTALCOH 09:24 | PROVIDERS: ATTEND Psychiatry & Neurology Psychiatry | DX: F11.20 Opioid dependence, uncomplicated (principal); F12.20 Cannabis dependence, uncomplicated; F17.200 Nicotine dependence, unspecified, uncomplicated ==

== ENCOUNTER 2019-06-12 15:47 | Inpatient (IN) | payer OTHER ==
[~2019-06-12] VITALS: Ht 162.6 cm; Wt 54.5 kg
[2019-06-12] MEDS ORDERED: GABA600T4 PO ×2 (16:04→22:07)
[2019-06-12] MEDS ORDERED: NARC1SPR ×2 (16:04→22:07)
[2019-06-12] MEDS ORDERED: CLON-412 PO ×2 (16:04→22:07)
[2019-06-12] MEDS ORDERED: D200CAP2 PO (16:04)
[2019-06-12] MEDS ORDERED: BUPR1SUB4 SL (16:04)
[2019-06-12 16:55] LABS: HEMATOCRIT 41.1 % (36.0-47.0); HEMOGLOBIN 13.9 g/dl (12.0-15.5); MEAN CORPUSCULAR HEMOGLOBIN 31.7 pg (27.0-33.0); MEAN CORPUSCULAR HGB CONC 33.8 g/dl (32.0-36.5); MEAN CORPUSCULAR VOLUME 93.8 fl (80.0-96.0); PLATELET COUNT, AUTOMATED 227 10^3/uL (150-450); RED BLOOD COUNT 4.38 10^6/uL (4.00-5.40); WHITE BLOOD COUNT 4.3 10^3/uL (4.0-10.0)
[2019-06-12 17:04] LABS: AMPHETAMINES LEVEL URINE NEGATIVE (NEGATIVE); BARBITURATES URINE NEGATIVE (NEGATIVE); BENZODIAZEPINES URINE NEGATIVE (NEGATIVE); CANNABINOIDS URINE POSITIVE (NEGATIVE); COCAINE METABOLITE URINE NEGATIVE (NEGATIVE); METHADONE URINE NEGATIVE (NEGATIVE); OPIATES URINE NEGATIVE (NEGATIVE); PHENCYCLIDINE URINE NEGATIVE (NEGATIVE)
[2019-06-12 17:13] LABS: ACETAMINOPHEN LEVEL < 2.0 UG/ML (10.0-30.0); ALBUMIN 3.8 GM/DL (3.2-5.2); ALT/SGPT 19 U/L (12-78); BILIRUBIN,DIRECT 0.1 MG/DL (0.0-0.2); BILIRUBIN,TOTAL 0.4 MG/DL (0.2-1.0); BLOOD UREA NITROGEN 6 MG/DL (7-18); CALCIUM LEVEL 9.1 MG/DL (8.5-10.1); CARBON DIOXIDE LEVEL 27 MEQ/L (21-32); CHLORIDE LEVEL 109 MEQ/L (98-107); CREATININE FOR GFR 0.94 MG/DL (0.55-1.30); ETHYL ALCOHOL (ETHANOL) < 0.003 % (0.000-0.010); GLOMERULAR FILTRATION RATE > 60.0 (>60); GLUCOSE, FASTING 103 MG/DL (70-100); POTASSIUM SERUM 3.9 MEQ/L (3.5-5.1); SALICYLATE LEVEL 4.9 MG/DL (5.0-30.0); SODIUM LEVEL 143 MEQ/L (136-145); TOTAL PROTEIN 7.4 GM/DL (6.4-8.2)
[2019-06-12] MEDS ORDERED: LORazepam 1 MG TAB PO ONE (21:15)
[2019-06-12] MEDS ORDERED: traZODone 50 MG TAB PO PRN (21:30)
[2019-06-12] MEDS ORDERED: ACETAMINOPHEN TAB 650MG DOSE (2X325MG) PO PRN (21:30)
[2019-06-12] MEDS ORDERED: MAALOX 30 ML SUSP *UDC PO PRN (21:30)
[2019-06-12] MEDS ORDERED: MOM 30ML SUSPENSION UDC PO PRN (21:30)
[2019-06-12] MEDS ORDERED: VENL75CA2 PO (22:07)
[2019-06-12] MEDS ORDERED: D3 S20002 PO (22:07)
[2019-06-12] MEDS: cloNIDine 0.1 MG TAB PO SCH (22:39)
[2019-06-12] MEDS: hydrOXYzine 10 MG TAB PO SCH (22:39)
[2019-06-12] MEDS: GABAPENTIN 300 MG CAP PO SCH (22:40)
[2019-06-13 00:22] VITALS: BP 148/90
[2019-06-13] MEDS: PROPRANOLOL 20 MG TAB PO SCH ×4 (03:20→19:51)
[2019-06-13 06:00] VITALS: BP 102/51
[2019-06-13] MEDS: OLANZapine ORAL DISINTEGRATING TAB 5MG PO PRN ×2 (07:34→19:51)
[2019-06-13] MEDS: VITAMIN D 1,000 INTERNATIONAL UNITS TABLET PO SCH (07:55)
[2019-06-13] MEDS: GABAPENTIN 300 MG CAP PO SCH ×2 (07:56→19:52)
[2019-06-13] MEDS: cloNIDine 0.1 MG TAB PO SCH ×2 (07:56→19:52)
[2019-06-13] MEDS: BUPRENORPHINE/NALOXONE 2-0.5MG SUBLINGUAL TABLET(SUBOXONE) SL SCH (08:15)
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
[2019-06-13] MEDS ORDERED: SUBL300I SC (12:46)
[2019-06-13 15:30] VITALS: BP 92/52
--- NOTE | 2019-06-13 16:20 | HPEPDOC ---
General Date of Admission Jun 12, 2019 at 21:25 Date of Service: Jun 13, 2019 Attending Physician: LUIS ENRIQUE HURST MD Chief Complaint The patient is a 38-year-old female admitted with a reason for visit of Other Specified Depressive Disorder. Source: Patient Exam Limitations: No limitations Timing/Duration: Other Associated Symptoms: Other History of Present Illness 38-year-old woman with a history of depression, anxiety, Graves disease, polysubstance abuse on suboxone who was admitted per patient after rhetorically expressing a passive desire to to her mental health provider after she was frustrated that her medication was being dispersed as the orange flavored type, when she is allergic to oranges. She reports having requested to have it changed to mint flavor but was told that she would need to bring in a product number vs. have her provider change and when she called her provider to request the change she got frustrated, "flipped out" and said "and now you know why sometimes people kill themselves." After that, police visited her residence and brought her to the hospital. She reports having been in her usual state of health without chest pain, palpitations, sweats, heat intolerance, diarrhea or any recent weight loss. She has Graves disease that is well controlled and per patient, her "levels have been stable." Home Medications Scheduled Buprenorphine (Sublocade) 300 Mg/1.5 Ml [place].syr, 300 MG SC Q30D for opioid use Cholecalciferol (Vitamin D3) (Vitamin D3) 2,000 Unit Capsule, 2,000 UNIT PO DAILY, (Reported) Clonidine HCl (Clonidine HCl) 0.1 Mg Tablet, 0.1 MG PO QHS, (Reported) Gabapentin (Gabapentin) 600 Mg Tablet, 600 MG PO TID, (Reported) Hydroxyzine HCl (Hydroxyzine HCl) 10 Mg Tablet, 10 MG PO QHS, (Reported) Naloxone HCl (Narcan) 4 Mg [place], 4 MG NA ASDIRECTED, (Reported) Propranolol HCl (Propranolol HCl) 40 Mg Tab, 40 MG PO TID, (Reported) Venlafaxine HCl (Venlafaxine HCl ER) 75 Mg Cap.er.24h, 75 MG PO DAILY, (Reported) Scheduled PRN Albuterol Sulfate (Ventolin Hfa) 108 Mcg/Act Aer, 2 PUFF INH Q4H PRN for SHORTNESS OF BREATH, (Reported) Allergies Coded Allergies: adhesive tape (Verified Allergy, Intermediate, HIVES, 06/12/19) citalopram (Verified Adverse Reaction, Severe, HOMICIDAL THOUGHTS, 06/12/19) fluoxetine (Verified Adverse Reaction, Severe, homicidal thoughts, 04/03/19) paroxetine (Verified Adverse Reaction, Severe, homicidal thoughts, 04/03/19) sertraline (Verified Adverse Reaction, Severe, homicidal thoughts, 04/03/19) prednisone (Verified Adverse Reaction, Intermediate, AGITATION, 06/12/19) Past Medical History Medical History Graves disease Depression polysubstance use disorder general anxiety disorder Family History Significant Family History: No pertinent family hx Social History * Smoker: current smoker A-FIB/CHADSVASC A-FIB History Current/History of A-Fib/PAF?: No Current PO Anticoag Therapy: No Age/Risk Factor Scoring CHADSVASC: CHADSVASC Response (Comments) Value Age Risk Factor Age < 65 years old 0 Gender Risk Factor Female 1 Hx of CHF No 0 Hx of HTN No 0 Hx of Stroke/TIA/or VTE No 0 Hx of Diabetes No 0 Hx of Vascular Disease No 0 Total 1 Treatment Treatment ordered: NONE Reason Anticoagulant not given: Not indicated/[id number] Review of Systems Constitutional: Denies: Chills, Fever, Night Sweats Eyes: Denies: Pain, Vision change ENT: Denies: Head Aches, Ear Pain, Dysphagia Skin: Denies: Rash, Lesions, Breakdown Pulmonary: Denies: Dyspnea, Cough Cardiovascular: Denies: Chest Pain, Palpitations, Orthopnea, Paroxysmal Noc. Dyspnea, Lt Headedness Gastrointestinal: Denies: Nausea, Vomiting, Abdominal Pain, Diarrhea Genitourinary: Denies: Dysuria, Frequency, Incontinence, Retention Hematologic: Denies: Bruising, Bleeding Excessively Endocrine: Denies: Polydipsia, Polyphagia, Polyuria, Heat Intolerance, Cold Intolerance, Other Endocrine Sx Musculoskeletal: Reports: Back Pain; Denies: Neck Pain, Joint Pain, Muscle Pain, Spasms Neurological: Denies: Weakness, Numbness, Change in speech, Confusion Psych: Reports: Anxiety, Depression; Denies: Mood Normal (Feels frustrated and depressed ), Thoughts of Self Harm Physical Examination General Exam: Positive: Alert, No Acute Distress Eye Exam: Positive: PERRLA, Conjunctiva & lids normal, EOMI; Negative: Sclera icteric ENT Exam: Positive: Atraumatic, Mucous membr. moist/pink, Pharynx Normal Neck Exam: Positive: Supple; Negative: JVD, thyromegaly Chest Exam: Positive: Clear to auscultation, Normal air movement Heart Exam: Positive: Rate Normal, Regular Rhythm, Normal S1, Normal S2; Negative: Murmurs, Rubs Abdomen Exam: Positive: Normal bowel sounds, Soft; Negative: Tenderness, Hepatospenomegaly Extremity Exam: Positive: Normal pulses; Negative: Clubbing, Cyanosis, Edema Skin Exam: Positive: Rash (has maculopapular dime sized patches on forehead) Neuro Exam: Positive: Normal Gait, Normal Speech, Strength at 5/5 X4 ext, Normal Tone, Sensation Intact, Cranial Nerves 3-12 NL, Reflexes 2+ Psych Exam: Positive: Mental status NL, Anxiety, Oriented x 3; Negative: Mood NL (depressed, short, initially impatient and annoyed appearing but became cooperative by the end of our conversation and examination) Vital Signs Vital Signs Date Time Temp Pulse Resp B/P (MAP) Pulse Ox O2 Delivery O2 Flow Rate FiO2 06/13/19 15:45 84 92/45 06/13/19 15:30 99.0 18 06/13/19 00:22 97 06/12/19 23:11 Room Air Laboratory Data Labs 24H Laboratory Tests 2 06/12/19 16:18: Nucleated Red Blood Cells % (auto) 0.0, Anion Gap 7L, Glomerular Filtration Rate > 60.0, Calcium Level 9.1, Aspartate Amino Transf (AST/SGOT) 15, Alanine Aminotransferase (ALT/SGPT) 19, Alkaline Phosphatase 95, Total Bilirubin 0.4, Direct Bilirubin 0.1, Total Protein 7.4, Albumin 3.8, Albumin/Globulin Ratio 1.06, Thyroid Stimulating Hormone (TSH) 1.240, Salicylates Level 4.9L, Urine Am phetamines Screen NEGATIVE, Urine Benzodiazepines Screen NEGATIVE, Urine Opiates Screen NEGATIVE, Urine Methadone Screen NEGATIVE, Acetaminophen Level < 2.0L, Urine Barbiturates Screen NEGATIVE, Urine Phencyclidine Screen NEGATIVE, Urine Cocaine Metabolite Screen NEGATIVE, Urine Cannabinoids Screen POSITIVEH, Ethyl Alcohol Level < 0.003 CBC/BMP Laboratory Tests 06/12/19 16:18 Red Blood Count 4.38, Mean Corpuscular Volume 93.8, Mean Corpuscular Hemoglobin 31.7, Mean Corpuscular Hemoglobin Concent 33.8, Red Cell Distribution Width 12.7 Assessment/Plan 38 yo woman with Graves disease well controlled on propanolol with currently normal TSH and clinically asymptomatic from a thyroid function perspective, who was brought in after threatening self harm in the setting of frustration over the specific flavor of her Suboxone formulation. From a thyroid perspective, she is at her baseline without any acute needs and reports feeling well with grossly normal labs at this time. Will recommend continuation of her home propanolol TID as prescribed and will defer psychiatric management to psychiatry. I will continue to follow peripherally. Thank you for letting me be part of the care for your patient. Plan / VTE VTE Prophylaxis Ordered?: No VTE Exclusion Mechanical Proph: Low Risk for VTE VTE Exclusion Pharmacological: At Low Risk for VTE LUIS ENRIQUE HURST MD Jun 13, 2019 16:07
[2019-06-13] MEDS: hydrOXYzine 10 MG TAB PO SCH (19:52)
[2019-06-14 06:27] VITALS: BP 94/56
[2019-06-14] MEDS: VITAMIN D 1,000 INTERNATIONAL UNITS TABLET PO SCH (08:00)
[2019-06-14] MEDS: GABAPENTIN 300 MG CAP PO SCH (08:00)
[2019-06-14 08:01] VITALS: BP 82/42
[2019-06-14] MEDS: PROPRANOLOL 20 MG TAB PO SCH (08:01)
[2019-06-14] MEDS: cloNIDine 0.1 MG TAB PO SCH (08:01)
[2019-06-14 08:02] VITALS: BP 82/42
[2019-06-14] MEDS: BUPRENORPHINE/NALOXONE 2-0.5MG SUBLINGUAL TABLET(SUBOXONE) SL SCH (08:02)
--- NOTE | 2019-06-14 08:20 | MHDSPDOC ---
[facility] Discharge Summary Discharge Summary DATE OF ADMISSION: Jun 12, 2019 at 21:25 DATE OF DISCHARGE: 06/14/19 Discharge Date of Service: 06/14/2019 Diagnoses Unspecified depressive disorder. Rule out substance induced Tobacco use disorder, severe. Cannabis use disorder, severe cocaine, stimulant, and opioid use disorder. History of Present Illness The patient, a 38-year-old woman, who is well known to this provider who has treated her on previous admissions and additionally treats her in the outpatient addiction clinics, presents to the [facility] initially after rosalinda ling our addiction clinic and had complained that she was concerned about coming in, as she had been using "synthetic Pearl" and had worried that her urine test would be positive. She's currently on buprenorphine low dose. She reportedly had become fairly upset and had said something to the effect of "I don't want to be around anymore" where she was subsequently called on a pickup order and admitted out of an abundance of caution. When I met with the patient, she described that she had been using synthetic Pearl and it had made her much more gonzalez, but that she had no intention of harming herself and that the situation was a misunderstanding. She requested to leave and stated that otherwise than the moodiness, her irritability, sleep and other signs and symptoms of depression and trauma had been at their baseline. The psychosocial information is updated from my previous H&P. Consultants Involved Hospitalist/PCP screening Treatment and Progress On The Unit The patient was admitted to the unit and subsequently she was observed over the weekend. When this provider had met with her, she had requested discharge. She had not been suicidal or homicidal since her presentation and was able to attend to her needs. Spoke about buprenorphine due to the concern of synthetic pearl use and that there need to be SUBLOCADE in the future. Patient initially consented this, but however reconsidered it. She reported that she would need to cancel her addiction appointment with me scheduled for later on the day of her discharge. She was discharged in [place] and she had declined any further voluntary admission at that time. Discharge Assessment 38-year-old woman with a history of depression, anxiety, and likely borderline personality disorder with significant addiction presents after reportedly making a statement over the phone. She was observed and no signs or symptoms of significant mental illness were seen, and she is not demonstrating any concerning behaviors or ideation that would necessitate her to be involuntarily extended and she declines further voluntary. Mental Status Examination General: Well dressed with good hygiene Speech: Spontaneous and fluid Thought processes: Linear and logical MSK: Smooth and coordinated gait, no signs of tremors or involuntary orofacial movements Thought content: Future orientated Abstract reasoning, and computation: Intact Description of associations: Intact Description of abnormal or psychotic thoughts: Denies any suicidal or homicidal ideation. Denies any auditory or visual hallucinations. Does not appear to be responding to internal stimuli. Does not appear to be endorsing any bizarre or paranoid ideation. Judgment: fair Insight: fair Orientation: Alert and orientated 3 Cognition: Grossly normal Recent and remote memory: Intact Attention span and concentration: Intact Fund of knowledge: Adequate Mood: "okay" Affect: Euthymic with a full range Follow Up The social work team worked during the predischarge meeting in order to evaluate for further issues of lethality address them fully before discharge. They worked on safety planning with the patient's family members in order to ensure that the patient will have a safe and effective discharge. Time Spent The amount of time spent in the coordination of care for this patient was approximately 30 minutes. Vital Signs/I&Os Vital Signs Date Time Temp Pulse Resp B/P (MAP) Pulse Ox O2 Delivery O2 Flow Rate FiO2 06/14/19 08:02 60 82/42 (55) 06/14/19 06:27 98.8 16 06/13/19 00:22 97 06/12/19 23:11 Room Air Medications Scheduled Budesonide/Formoterol (Symbicort 80-4.5 Mcg Inhaler) 6.9 Gm Hfa.aer.ad, 2 PUFF INH BID for moderate asthma for 30 Days, #10.2 Buprenorphine (Sublocade) 300 Mg/1.5 Ml [place].syr, 300 MG SC Q30D for opioid use for 30 Days, #1 Cholecalciferol (Vitamin D3) (Vitamin D3) 2,000 Unit Capsule, 2,000 UNIT PO DAILY, (Reported) Clonidine HCl (Clonidine HCl) 0.1 Mg Tablet, 0.1 MG PO QHS, (Reported) Gabapentin (Gabapentin) 600 Mg Tablet, 600 MG PO TID, (Reported) Hydroxyzine HCl (Hydroxyzine HCl) 10 Mg Tablet, 10 MG PO QHS, (Reported) Naloxone HCl (Narcan) 4 Mg [place], 4 MG NA ASDIRECTED, (Reported) Propranolol HCl (Propranolol HCl) 40 Mg Tab, 40 MG PO TID, (Reported) Venlafaxine HCl (Venlafaxine HCl ER) 75 Mg Cap.er.24h, 75 MG PO DAILY, (Reported) Scheduled PRN Albuterol Sulfate (Ventolin Hfa) 108 Mcg/Act Aer, 2 PUFF INH Q4H PRN for SHORTNESS OF BREATH, (Reported) Allergies Coded Allergies: adhesive tape (Verified Allergy, Intermediate, HIVES, 06/12/19) citalopram (Verified Adverse Reaction, Severe, HOMICIDAL THOUGHTS, 06/12/19) fluoxetine (Verified Adverse Reaction, Severe, homicidal thoughts, 04/03/19) paroxetine (Verified Adverse Reaction, Severe, homicidal thoughts, 04/03/19) sertraline (Verified Adverse Reaction, Severe, homicidal thoughts, 04/03/19) prednisone (Verified Adverse Reaction, Intermediate, AGITATION, 06/12/19) ISAIAH ACUÑA DO Jun 14, 2019 08:20
[2019-06-14] MEDS ORDERED: ALBUTEROL 90 MCG/ACT 8GM HFA INHALER INH PRN (08:30)
[2019-06-14] MEDS ORDERED: SUBL300I SC (09:32)
[2019-06-14] MEDS ORDERED: SYMB80INH INH (10:59)
--- NOTE | 2019-06-14 11:08 | IPNPDOC ---
Text Note Date of Service The patient was seen on 06/14/19. NOTE Subjective: -Feels well, was short of breath earlier this morning now better after albuterol inhaler x 2 -Denies new URI symptoms of cough, rhinorrhea, congestion, fever, chills, nausea, emesis, diarrhea Objective: Vitals: see below Physical Examination General Exam: Alert, No Acute Distress Eye Exam: PERRLA, Conjunctiva & lids normal, EOMI ENT Exam: atraumatic, MMM, Pharynx Normal Neck Exam: Supple; no JVD Chest Exam: Clear to auscultation, Normal air movement, however this is after albuterol inhaler 30 minutes earlier Heart Exam: Rate Normal, Regular Rhythm, Normal S1, Normal S2; no Murmurs or Rubs Abdomen Exam: Normal bowel sounds, Soft; no Tenderness Extremity Exam: Normal pulses; no Edema Skin Exam: no new Rash (has maculopapular dime sized patches on forehead as before) Neuro Exam: Normal Gait, Normal Speech, Strength at 5/5 X4 ext, Cranial Nerves 3-12 NL Psych Exam: Mental status NL, Oriented x 3; Assessment/Plan 38 yo woman with Graves disease well controlled on propanolol with currently normal TSH and clinically asymptomatic from a thyroid function perspective, who was brought in after threatening self harm in the setting of frustration over the specific flavor of her Suboxone formulation, whose course was c/b an episode of wheezing and chest tightness c/w symptomatic asthma this morning requiring albuterol inhaler x 2. She reports that she is using a her home inhaler at least twice per day, currently smokes, however without limitations in her baseline activities, which makes her GOLD stage at least moderate to severe asthma. -In addition to her daily rescue albuterol inhaler, will start her on low dose symbicort and she has close follow up with her PCP with ongoing pulmonary testing and will be reviewed for further asthma +/- COPD management optimiza tion. -Symbicort script sent to the pharmacy. Thank you for consulting us for the care of your patient. VS,Fishbone, I+O VS, Fishbone, I+O Vital Signs Date Time Temp Pulse Resp B/P (MAP) Pulse Ox O2 Delivery O2 Flow Rate FiO2 06/14/19 08:02 60 82/42 (55) 06/14/19 06:27 98.8 16 06/13/19 00:22 97 06/12/19 23:11 Room Air LUIS ENRIQUE HURST MD Jun 14, 2019 11:08
== END 2019-06-14 12:00 | disposition home or self-care (01) | DRG 754 ==
LOC: M ED 15:47 → M ED INP 21:25 → M PSY 23:50
PROVIDERS: ADMIT Psychiatry & Neurology Psychiatry; ATTEND Psychiatry & Neurology Addiction Medicine
DX: F32.9 Major depressive disorder, single episode, unspecified (principal); F17.210 Nicotine dependence, cigarettes, uncomplicated; F12.20 Cannabis dependence, uncomplicated; F14.10 Cocaine abuse, uncomplicated; F15.10 Other stimulant abuse, uncomplicated; F11.10 Opioid abuse, uncomplicated; E05.00 Thyrotoxicosis with diffuse goiter without thyrotoxic crisis or storm; F41.1 Generalized anxiety disorder; Z79.899 Other long term (current) drug therapy; Z88.8 Allergy status to other drugs, medicaments and biological substances; Z91.048 Other nonmedicinal substance allergy status; Z81.8 Family history of other mental and behavioral disorders

== ENCOUNTER → 2019-06-18 | Outpatient (RCR) | payer OTHER ==
[~2019-06-18] MED LIST changes: +BUPR1SUB4 SL; +CLON-412 PO; +D200CAP2 PO; +D3 S20002 PO; +NARC1SPR; +SUBL300I SC; +SYMB80INH INH; +VENL75CA2 PO
== END ==
LOC: M OUTALCOH 05-24 14:24
PROVIDERS: ATTEND Psychiatry & Neurology Psychiatry
DX: F11.20 Opioid dependence, uncomplicated (principal); F12.20 Cannabis dependence, uncomplicated; F17.200 Nicotine dependence, unspecified, uncomplicated